=== PATIENT | female | born 1995 | race Two or more races ===

== ENCOUNTER 2018-11-25 12:41 | Outpatient (CLI) | payer OTHER | END 2018-11-25 12:50 | disposition home or self-care (01) | LOC: LAB 12:41 | DX: R42 Dizziness and giddiness (principal); E78.49 Other hyperlipidemia; Z00.00 Encounter for general adult medical examination without abnormal findings; Z11.3 Encounter for screening for infections with a predominantly sexual mode of transmission ==

== ENCOUNTER 2019-03-21 11:32 | Outpatient (CLI) | payer OTHER | END 2019-03-21 11:40 | disposition home or self-care (01) | LOC: LAB 11:32 | DX: D64.89 Other specified anemias (principal); E88.89 Other specified metabolic disorders; D68.8 Other specified coagulation defects; N39.0 Urinary tract infection, site not specified; Z22.322 Carrier or suspected carrier of Methicillin resistant Staphylococcus aureus; E55.9 Vitamin D deficiency, unspecified; Z76.89 Persons encountering health services in other specified circumstances; I49.8 Other specified cardiac arrhythmias ==

== ENCOUNTER 2019-03-27 06:35 | Day surgery (SDC) | payer OTHER | END 2019-03-27 12:05 | disposition home health service (06) | LOC: CIR.AMB 06:35 | DX: S62.316A Displaced fracture of base of fifth metacarpal bone, right hand, initial encounter for closed fracture (principal) ==

== ENCOUNTER 2019-05-10 14:20 | Outpatient (CLI) | payer OTHER | END 2019-05-10 14:25 | disposition home or self-care (01) | LOC: RAD 14:20 | DX: M79.641 Pain in right hand (principal) ==